=== PATIENT | female | born 1960 | race Caucasian/White ===

== ENCOUNTER → 2016-05-07 | Outpatient (CLI) | payer BC ==
[~2016-05-07] MED LIST: ALBU18002 PO; ASMANEX INH; BUPRTAB51 PO; CALC-279 PO; CEFT1INJ26 IV; CITA10TA4 PO; FENO67CA2 PO; JUICE PLUS GARDEN PO; JUICE PLUS ORCHARD PO; MELO7.5T5 PO; MULT-506 PO; OMEG10007 PO; TRIA37.5 PO; ZNTT/150 PO
[2016-05-07 13:14] LABS: ALT/SGPT 32 U/L (12-78); BLOOD UREA NITROGEN 16 mg/dl (7-18); BUN/CREATININE RATIO 17.8 (10-20); CALCIUM 8.9 mg/dl (8.5-10.1); CARBON DIOXIDE 27 mmol/L (21-32); CHLORIDE 105 mmol/L (98-107); CHOLESTEROL 215 mg/dl (0-200); GLUCOSE 96 mg/dl (70-99); POTASSIUM 4.5 mmol/L (3.5-5.1); SODIUM 139 mmol/L (136-145); TRIGLYCERIDES 163 mg/dl (0-150); VERY LOW DENSITY LIPOPROT CALC 33 mg/dl
[2016-05-07 13:25] LABS: ALB/GLOB RATIO 0.9 (0.9-2); ALKALINE PHOSPHATASE 98 U/L (45-117); AST/SGOT 23 U/L (15-37); HDL CHOLESTEROL 54 mg/dl; LDL CHOLESTEROL CALCULATED 128 mg/dl
== END | disposition home or self-care (01) ==
LOC: C.LABPVFM 08:07
PROVIDERS: ATTEND Family Medicine
DX: E78.00 Pure hypercholesterolemia, unspecified (principal); F32.9 Major depressive disorder, single episode, unspecified; I10 Essential (primary) hypertension; Z13.21 Encounter for screening for nutritional disorder

== ENCOUNTER → 2016-05-14 | Outpatient (CLI) | payer BC ==
[~2016-05-14] VITALS: Ht 162.6 cm; Wt 93.3 kg
[2016-05-14 13:54] VITALS: BP 148/90; PULSE 92; Ht 162.6 cm; Wt 93.3 kg
== END | disposition home or self-care (01) ==
LOC: C.NEUR 13:28
PROVIDERS: ATTEND Internal Medicine Pulmonary Disease
DX: G47.33 Obstructive sleep apnea (adult) (pediatric) (principal); J45.909 Unspecified asthma, uncomplicated

== ENCOUNTER → 2016-05-19 | Outpatient (CLI) | payer BC ==
--- NOTE | 2016-05-20 12:35 | MAMMOGRAPHY REPORT ---
BILATERAL DIGITAL SCREENING MAMMOGRAM TOMOSYNTHESIS WITH CAD: 05/19/2016 CLINICAL HISTORY: Routine screening examination. TECHNIQUE: Breast tomosynthesis in addition to standard 2D mammography was performed. Current study was also evaluated with a Computer Aided Detection (CAD) system. COMPARISON: Comparison is made to exams dated: 05/16/2015 mammogram, 03/31/2012 mammogram, 02/06/2010 mammogram - [facility], and 01/27/2007. BREAST COMPOSITION: There are scattered areas of fibroglandular density in both breasts. FINDINGS: There is stable nodularity in the right breast and stable benign-appearing microcalcifica tions bilaterally. No suspicious mass, architectural distortion or cluster of microcalcifications i s seen. IMPRESSION: ACR BI-RADS CATEGORY 1: NEGATIVE There is no mammographic evidence of malignancy. A 1 year screening mammogram is recommended. The p atient will receive written notification of the results. Approximately 10% of breast cancers are not detected with mammography. A negative mammographic repor t should not delay biopsy if a clinically suggestive mass is present. Susie Ayala M.D. ay/:05/19/2016 16:55:26 [employer]: Marianela SANTOS(Prabhjot)(Ellie), [facility] letter sent: Normal 1/2 BI-RADS Code: ACR BI-RADS Category 1: Negative
== END | disposition home or self-care (01) ==
LOC: C.MAMM 08:38
PROVIDERS: ATTEND Family Medicine
DX: Z12.31 Encounter for screening mammogram for malignant neoplasm of breast (principal)

== ENCOUNTER → 2017-02-16 | Day surgery (SDC) | payer BC ==
[~2017-02-16] VITALS: Ht 162.6 cm; Wt 90.5 kg
[2017-02-16] VITALS (10 sets, daily range): BP systolic 134–156; BP diastolic 69–88; PULSE 75–90; TEMP 36.5–37.1; O2SAT 93–95; Ht 162.6 cm; Wt 90.5 kg
[~2017-02-16] MED LIST changes: +ACETAMINOPHEN 500 MG TAB PO PRN
--- NOTE | 2017-02-16 10:02 | Discharge Instructions ---
Discharge Instructions Procedure Procedure Date: Feb 16, 2017. Reason for visit: Pinched Nerve, Stenosis. Discharge Discharge Date: Feb 16, 2017. Discharge Diagnosis: Right lower extremity radiculopathy Instructions Activity Recommendations: 1 Day-May resume regular activity, 48 Hours of decreased exertion, 1 Day with no exercise/sex/sports, 1 Day with no driving/ machine use Return to School/Work: limitations (light activity x 48 hours) Recommended Home Diet: Resume Previous Diet Provider Instructions: Fluoroscopic guided lumbar puncture is performed in preparation for a CT myelogram. Intrathecal positioning is confirmed by return of CSF into the needle hub. Iodinated contrast was then injected into the thecal sac for CT myelography. The procedure was well tolerated and without immediate complication. ACTIVITY RECOMMENDATIONS: * Rest today. * Resume regular activity in one day. MEDICATIONS: * May take Tylenol or Ibuprofen as needed for pain. DIET: * Resume previous diet. SPECIAL CARE INSTRUCTIONS: Call your doctor if: * Temperature above 101 degrees F. * Pain not relieved by pain medicine ordered. * Increased drainage or redness from incision. * Notify your doctor with any questions or concerns. Call your doctor or go to the nearest Emergency Department if you experience: * Increased chest pain or shortness of breath. FOLLOW UP VISIT: Follow-up with Referring Physician as scheduled. Allergies Coded Allergies: Oxycodone (Verified Allergy, Unknown, SEVERE NAUSEA AND VOMITNG, 02/16/17) Hydrocodone (Verified Adverse Reaction, Unknown, NAUSEA/STOMACH UPSET, ) [place] Recommendations: Call your doctor if: * Temperature above 101 degrees * Pain not relieved by pain medicine ordered * There is increased drainage or redness from any incision * You have any unanswered questions or concerns. Your Doctors Instructions noted above were prepared by provider Bridger Monsalve. Patient Signature Section: Patient Instructions Signature Page Gris Confer Patient (or Guardian) Signature/Date: I have read and understand the instructions given to me by my caregivers. Caregiver/RN/Doctor Signature/Date: The above-named patient and/or guardian has received patient instructions on this date. + Original Patient Signature Page (only) stays with chart. Please make copy for patient.
--- NOTE | 2017-02-16 10:10 | DIAGNOSTIC IMAGING REPORT ---
FLUOROSCOPIC GUIDED LUMBAR PUNCTURE CLINICAL HISTORY: Right lower extremity radiculopathy. Lumbar puncture with contrast injection for CT myelogram. PROCEDURE: The risks, benefits, and alternatives to the procedure is discussed with the patient who voiced understanding. Written informed consent was obtained. The patient was placed prone on the fluoroscopy table. The lower back was prepped and draped in the usual sterile fashion. 1% lidocaine was used for local anesthesia. A 22-gauge spinal needle was inserted into the L3-L4 laminectomy site, and intrathecal positioning was confirmed by return of cerebrospinal fluid into the needle hub. Approximately 10 cc of Isovue-200 was then injected into the thecal sac under fluoroscopic guidance. The patient tolerated the procedure well. There were no immediate complications. The patient was then transported to CT for CT myelogram and was observed in the medical treatment unit prior to discharge. Fluoroscopy time: 0.3 minutes. IMPRESSION: Fluoroscopic guided lumbar puncture with intrathecal injection of iodinated contrast for CT myelogram. There were no immediate complications. Electronically signed by: Bridger Monsalve M.D. 02/16/2017 10:09 AM Dictated Date/Time: 02/16/2017 10:07 AM
--- NOTE | 2017-02-16 11:01 | DIAGNOSTIC IMAGING REPORT ---
CT MYELOGRAM OF THE LUMBAR SPINE CLINICAL HISTORY: Right lower extremity radiculopathy. COMPARISON STUDY: MRI of the lumbar spine dated 10/14/2006. TECHNIQUE: Following the intrathecal administration of iodinated contrast, CT myelogram of the lumbar spine is performed from the lower thoracic spine to the sacrum. Images are reviewed in the axial, sagittal, and coronal planes. A dose lowering technique was utilized adhering to the principles of ALARA. CT DOSE: 998.30 mGy.cm FINDINGS: Lumbar spine: The skeletal structures are osteopenic. There is no evidence of acute fracture. Vertebral body height is maintained throughout the lumbar spine. There is 5 mm of anterolisthesis at L4-L5. Alignment is otherwise preserved. There are postoperative changes from laminectomy and posterior fusion seen from L3 to L5. Intrapedicular screws are present at all levels. The orthopedic hardware appears intact. The transverse processes appear intact. There is no evidence of spondylolysis. No lytic or blastic lesion is seen. Intervertebral discs: There is moderate to severe disc space narrowing seen at L4-L5. The disc spaces are otherwise preserved. Spinal cord and central canal: The visualized spinal cord is normal in morphology. The conus medullaris terminates at the level of L2. The nerve roots of the cauda equina are normal in morphology. There is at least moderate to severe central canal stenosis at the L2-L3 level. The central canal appears widely patent at the remaining lumbar levels. T12-L1: Unremarkable. L1-L2: Unremarkable. L2-L3: There is a broad-based posterior disc bulge. In conjunction with hypertrophy of the ligamentum flavum there is moderate to severe central canal stenosis at this level. The minimum AP diameter measures 6 mm. An inferiorly extruded/sequestered fragment is suggested eccentric to the right at this level, best seen on sagittal image number 31. This measures 1.2 cm, and there is tethering of the nerve roots of the cauda equina at this level with impingement on the transiting nerve roots, right greater than left. The neural foramina are patent. L3-L4: The central canal and neural foramina appear patent. L4-L5: There is a posterior disc-osteophyte complex. The central canal and neural foramina are patent at this level. L5-S1: The central canal and neural foramina are patent. Facet arthropathy is of no consequence. Sacrum: The visualized sacrum and bony pelvis appear intact. Soft tissues: There is fatty atrophy of the paraspinous musculature. Hepatic steatosis is observed. The abdominal aorta is normal in caliber noting mild atherosclerotic calcification. No retroperitoneal lymphadenopathy is seen. IMPRESSION: 1. There is a posterior disc bulge at L2-L3, with a suspected inferiorly extruded/sequestered disc fragment within the central canal eccentric to the right. This causes moderate to severe central canal stenosis at this level and impinges on the transiting bilateral nerve roots, right greater than left. 2. No significant spinal stenosis is seen at the remaining lumbar levels. See above discussion for detailed nxhlz-pf-czlax analysis. 3. There are postoperative changes from laminectomy and posterior fusion from L3 to L5. The orthopedic hardware appears intact. 4. No destructive bony lesion is identified. Dictated: 02/16/2017 10:17 AM Transcribed: 02/16/2017 11:01 AM [facility] Electronically signed by: Bridger Monsalve M.D. 02/16/2017 11:06 AM Dictated Date/Time: 02/16/2017 10:17 AM
== END ==
LOC: C.ACU 07:28
PROVIDERS: ATTEND Orthopaedic Surgery Orthopaedic Surgery of the Spine
DX: M48.061 Spinal stenosis, lumbar region without neurogenic claudication (principal); M51.16 Intervertebral disc disorders with radiculopathy, lumbar region

== ENCOUNTER → 2017-04-13 | Outpatient (CLI) | payer BC ==
[~2017-04-13] MED LIST changes: -ACETAMINOPHEN 500 MG TAB PO PRN; -CEFT1INJ26 IV
[2017-04-13 12:57] LABS: ALBUMIN 3.4 gm/dl (3.4-5.0); ALT/SGPT 49 U/L (12-78); AST/SGOT 26 U/L (15-37); BLOOD UREA NITROGEN 10 mg/dl (7-18); CALCIUM 9.4 mg/dl (8.5-10.1); CARBON DIOXIDE 30 mmol/L (21-32); CHOLESTEROL 186 mg/dl (0-200); CREATININE 0.97 mg/dl (0.60-1.20); GLUCOSE 100 mg/dl (70-99); POTASSIUM 4.4 mmol/L (3.5-5.1); SODIUM 139 mmol/L (136-145)
[2017-04-13 13:00] LABS: ALKALINE PHOSPHATASE 80 U/L (45-117); LDL CHOLESTEROL CALCULATED 107 mg/dl
== END | disposition home or self-care (01) ==
LOC: C.LABPVFM 07:41
PROVIDERS: ATTEND Family Medicine
DX: E78.00 Pure hypercholesterolemia, unspecified (principal); L40.9 Psoriasis, unspecified; I10 Essential (primary) hypertension

== ENCOUNTER → 2017-05-18 | Outpatient (CLI) | payer BC ==
[~2017-05-18] VITALS: Ht 162.6 cm; Wt 93.1 kg
[~2017-05-18] MED LIST changes: +RANI150T85 PO; -ZNTT/150 PO
[2017-05-18 13:52] VITALS: BP 168/88; PULSE 85; Ht 162.6 cm; Wt 93.1 kg
== END | disposition home or self-care (01) ==
LOC: C.NEUR 11:50
PROVIDERS: ATTEND Physician Assistant Medical
DX: G47.33 Obstructive sleep apnea (adult) (pediatric) (principal); I10 Essential (primary) hypertension

== ENCOUNTER → 2017-05-21 | Outpatient (CLI) | payer BC ==
--- NOTE | 2017-05-21 15:44 | MAMMOGRAPHY REPORT ---
BILATERAL DIGITAL SCREENING MAMMOGRAM TOMOSYNTHESIS WITH CAD: 05/21/2017 CLINICAL HISTORY: Routine screening. The patient reported to the technologist that she has itchiness around her left areola. TECHNIQUE: Breast tomosynthesis in addition to standard 2D mammography was performed. Current study was also evaluated with a Computer Aided Detection (CAD) system. COMPARISON: Comparison is made to exams dated: 05/19/2016 mammogram, 05/16/2015 mammogram, 03/31/2012 m ammogram, 02/19/2011 mammogram, 02/06/2010 mammogram, and 02/05/2009 mammogram - [facility]. BREAST COMPOSITION: There are scattered areas of fibroglandular density in both breasts. FINDINGS: No suspicious masses, calcifications, or areas of architectural distortion are noted in ei ther breast. There has been no significant interval change compared to prior exams. Scattered bilater al benign-appearing calcifications are not significantly changed. IMPRESSION: ACR BI-RADS CATEGORY 2: BENIGN There is no mammographic evidence of malignancy. A 1 year screening mammogram is recommended. Also r ecommend clinical follow-up for left areolar itchiness. The patient will receive written notificatio n of the results. Approximately 10% of breast cancers are not detected with mammography. A negative mammographic report should not delay biopsy if a clinically suggestive mass is present. Lara Groves M.D. ah/:05/21/2017 13:32:10 [employer] Repairer: Norberto Chi RT(R)(M), [facility] letter sent: Normal 1/2 BI-RADS Code: ACR BI-RADS Category 2: Benign
== END | disposition home or self-care (01) ==
LOC: C.MAMM 08:20
PROVIDERS: ATTEND Family Medicine
DX: Z12.31 Encounter for screening mammogram for malignant neoplasm of breast (principal)

== ENCOUNTER → 2017-07-09 | Outpatient (CLI) | payer BC ==
--- NOTE | 2017-07-09 09:28 | DIAGNOSTIC IMAGING REPORT ---
CHEST 2 VIEWS ROUTINE CLINICAL HISTORY: 56 years-old Female presenting with ASTHMA WITH ACUTE EXACERBATION, COUGH PERSISTENT. TECHNIQUE: PA and lateral views of the chest were obtained. COMPARISON: 12/04/2015. FINDINGS: Cardiomediastinal silhouette normal. Lungs and pleural spaces clear. Partially visualized lumbar fusion hardware. Upper abdomen normal. IMPRESSION: 1. No acute cardiopulmonary disease. Electronically signed by: Forest Mcmahon M.D. 07/09/2017 9:26 AM Dictated Date/Time: 07/09/2017 9:25 AM
== END | disposition home or self-care (01) ==
LOC: C.RADPV 09:13
PROVIDERS: ATTEND Nurse Practitioner
DX: J45.901 Unspecified asthma with (acute) exacerbation (principal); R05 Cough

== ENCOUNTER 2017-08-04 18:36 | Emergency (ER) | payer BC ==
[~2017-08-04] VITALS: Ht 162.6 cm; Wt 95.9 kg
[2017-08-04 18:48] VITALS: TEMP 37.2; Ht 162.6 cm; Wt 95.9 kg
[2017-08-04] MEDS ORDERED: ASPIRIN 324 MG CHEW PO STA (18:59)
[2017-08-04 19:08] VITALS: O2SAT 95
--- NOTE | 2017-08-04 19:13 | EMERGENCY ROOM VISIT NOTE ---
History First contact with patient: 18:53 Chief Complaint: CHEST PAIN Stated Complaint: PRESSURE IN CHEST WHEN BREATHING History of Present Illness The patient is a 56 year old female who presents to the Emergency Room via private vehicle with complaints of "pressure in chest when breathing". The patient states that 3-4 weeks ago she experienced wheezing and a cough which she thought was bronchitis. She notes she had 3 doctor's appointments in 1 week. She was initially on penicillin for a dental reason but then was switched to prednisone, and doxycycline and then another antibiotic of which she is not sure what it was. She was then on a course of 15 days of prednisone taper. She notes that she felt better for about a week and a half however last night when she returned home from work she developed chest discomfort when she took a breath. She denies any leg swelling, hemoptysis, history of clots, or heart troubles. She notes she does have high cholesterol. There have been no exacerbating factors other than deep breath. No alleviating factors. Review of Systems A complete 10-point Review of Systems was discussed with the patient, with pertinent positives and negatives listed in the History of Present Illness. All remaining Review of Systems questions can be considered negative unless otherwise specified. Past Medical/Surgical History Medical Problems: (1) Asthma (2) Hypertension (3) Incisional infection (4) Spondylolisthesis, lumbar region (5) Wound infection after surgery Surgical Problems: (1) History of back surgery (2) S/P laminectomy Family History Cancer Diabetes mellitus Hypertension Social History Smoking Status: Never Smoker Alcohol Use: none Drug Use: none Marital Status: Housing Status: lives with family Occupation Status: employed Current/Historical Medications Scheduled Bupropion (Wellbutrin-Xl), 300 MG PO QAM Calcium Citrate-Vitamin D (Calcium Citrate + D), 1 TAB PO QAM Citalopram Hydrobromide (Citalopram Hydrobromide), 20 MG PO HS Fenofibrate Micronized (Tricor), 67 MG PO QAM Fish Oil ([place]-3), 1 CAP PO QAM Meloxicam (Mobic), 15 MG PO QAM Multivitamin (Multivitamin), 1 TAB PO QAM Ranitidine (Zantac), 150 MG PO HS Triamterene/Hctz (Dyazide 37.5MG/25MG), 1 TAB PO QAM [Asmanex], 2 PUFFS INH QAM [Juice Plus [place]], 2 TAB PO QAM [Juice Plus [place]], 2 TAB PO QAM Scheduled PRN Albuterol Sulfate (Proair Respiclick), 1 INHA PO QID PRN for SOB/Wheezing Physical Exam Vital Signs Date Time Temp Pulse Resp B/P (MAP) Pulse Ox O2 Delivery O2 Flow Rate FiO2 08/04/17 20:38 94 18 154/81 94 Room Air 08/04/17 19:49 94 18 121/70 93 Room Air 08/04/17 19:15 99 08/04/17 19:08 95 Room Air 08/04/17 19:07 95 Room Air 08/04/17 18:48 37.2 101 20 151/84 99 Room Air Physical Exam VITAL SIGNS - Vital signs and nursing notes were reviewed. Stable. GENERAL -56-year-old female appearing her stated age who is in no acute distress. Communicates well with provider and answers questions appropriately. SKIN - Without rashes. No meningeal or petechial rash HEAD - NC/AT. EYES - PERRL with EOMI bilaterally. Sclera anicteric EARS - No deformities of external structures noted on gross examination bilaterally. NOSE - Midline and without cyanosis. No epistaxis or purulent drainage noted. MOUTH/OROPHARYNX - Without perioral cyanosis. NECK - Neck with FROM. No nuchal rigidity. LUNGS - Chest wall symmetric without accessory muscle use, intercostals retractions, or central cyanosis. Normal vesicular breath sounds CTA B/L. No wheezes, rales, or rhonchi appreciated. CARDIAC - RRR with S1/S2. No murmur, rubs, or gallops appreciated. No reproducible anterior chest pain. ABDOMEN - Abdominal contour normal without pulsations or visible masses. BS normoactive all four quadrants. No tenderness, palpable masses, hepatosplenomegaly, or ascites noted. EXTREMITIES - No clubbing or peripheral cyanosis. No pretibial edema present. + 5/5 strength noted in UE/LE bilaterally. NEUROLOGIC - Cranial nerves II through XII grossly intact. Sensory intact to light touch throughout. PSYCH - A&O, and cooperates fully with examiner. Pt is very pleasant and interacts well with examiner. Medical Decision & Procedures ER Provider Diagnostic Interpretation: CHEST ONE VIEW PORTABLE HISTORY: 56 years-old Female inspiratory chest discomfort acute atypical chest pain COMPARISON: Chest radiograph 07/09/2017 TECHNIQUE: Portable AP view of the chest FINDINGS: Cardiomediastinal and hilar silhouettes are within normal limits. Mild right hemidiaphragm elevation without pneumothorax, pleural effusion, focal airspace consolidation or overt pulmonary edema. The bones of the chest appear grossly intact. Mild degenerative changes about the spine. IMPRESSION: No acute process. The above report was generated using voice recognition software. It may contain grammatical, syntax or spelling errors. Electronically signed by: Fortino Worthy M.D. 08/04/2017 7:31 PM Dictated Date/Time: 08/04/2017 7:30 PM Laboratory Results 08/04/17 19:05 Red Blood Count 4.33, Mean Corpuscular Volume 88.7, Mean Corpuscular Hemoglobin 31.4, Mean Corpuscular Hemoglobin Concent 35.4, Mean Platelet Volume 9.1, Neutrophils (%) (Auto) 46.7, Lymphocytes (%) (Auto) 36.9, Monocytes (%) (Auto) 11.7, Eosinophils (%) (Auto) 4.2, Basophils (%) (Auto) 0.3, Neutrophils # (Auto ) 3.00, Lymphocytes # (Auto) 2.37, Monocytes # (Auto) 0.75, Eosinophils # (Auto ) 0.27, Basophils # (Auto) 0.02 08/04/17 19:05 Test 08/04/17 19:05 White Blood Count 6.42 K/uL (4.8-10.8) Red Blood Count 4.33 M/uL (4.2-5.4) Hemoglobin 13.6 g/dL (12.0-16.0) Hematocrit 38.4 % (37-47) Mean Corpuscular Volume 88.7 fL (80-100) Mean Corpuscular Hemoglobin 31.4 pg (25-34) Mean Corpuscular Hemoglobin Concent 35.4 g/dl (32-36) Platelet Count 287 K/uL (130-400) Mean Platelet Volume 9.1 fL (7.4-10.4) Neutrophils (%) (Auto) 46.7 % Lymphocytes (%) (Auto) 36.9 % Monocytes (%) (Auto) 11.7 % Eosinophils (%) (Auto) 4.2 % Basophils (%) (Auto) 0.3 % Neutrophils # (Auto) 3.00 K/uL (1.4-6.5) Lymphocytes # (Auto) 2.37 K/uL (1.2-3.4) Monocytes # (Auto) 0.75 K/uL (0.11-0.59) Eosinophils # (Auto) 0.27 K/uL (0-0.5) Basophils # (Auto) 0.02 K/uL (0-0.2) RDW Standard Deviation 39.6 fL (36.4-46.3) RDW Coefficient of Variation 12.4 % (11.5-14.5) Immature Granulocyte % (Auto) 0.2 % Immature Granulocyte # (Auto) 0.01 K/uL (0.00-0.02) Prothrombin Time 9.8 SECONDS (9.0-12.0) Prothromb Time International Ratio 0.9 (0.9-1.1) Activated Partial Thromboplast Time 27.3 SECONDS (21.0-31.0) Partial Thromboplastin Ratio 1.1 D-Dimer 270 ug/L FEU (0-500) Anion Gap 8.0 mmol/L (3-11) Est Creatinine Clear Calc Drug Dose 53.1 ml/min Estimated GFR () 51.7 Estimated GFR (Non- 44.6 BUN/Creatinine Ratio 9.9 (10-20) Calcium Level 8.9 mg/dl (8.5-10.1) Magnesium Level 1.9 mg/dl (1.8-2.4) Total Bilirubin 0.5 mg/dl (0.2-1) Aspartate Amino Transf (AST/SGOT) 22 U/L (15-37) Alanine Aminotransferase (ALT/SGPT) 38 U/L (12-78) Alkaline Phosphatase 91 U/L (45-117) Total Creatine Kinase 60 U/L (26-192) Creatine Kinase MB < 0.5 ng/ml (0.5-3.6) Creatine Kinase MB Ratio (0-3.0) Troponin I < 0.015 ng/ml (0-0.045) Total Protein 7.8 gm/dl (6.4-8.2) Albumin 3.6 gm/dl (3.4-5.0) Globulin 4.2 gm/dl (2.5-4.0) Albumin/Globulin Ratio 0.9 (0.9-2) Lipase 198 U/L (73-393) Thyroid Stimulating Hormone (TSH) 1.860 uIu/ml (0.300-4.500) Medications Administered Medications (Trade) Dose Ordered Sig/Florentino Route Start Time Stop Time Status Last Admin Dose Admin Aspirin (Aspirin Chew) 324 mg NOW STAT PO 08/04/17 18:59 08/04/17 19:01 DC 08/04/17 19:04 324 MG Potassium Chloride (Klor-Con M10) 40 meq NOW STAT PO 08/04/17 20:31 08/04/17 20:32 DC 08/04/17 20:43 40 MEQ Medical Decision Patient was seen and evaluated as above in room a 9. Review was performed of nursing notes and vital signs. After obtaining a thorough history and physical examination the above work up was performed. She presents to us today with chest pain. She is nontoxic on exam. Vital signs are stable. I did elect to obtain baseline labs. EKG was obtained. Per my interpretation EKG reveals normal sinus rhythm, rate of 99 bpm. No ectopy or ischemic change. This was compared with EKG of December 04, 2015 and no significant change was found. CBC reveals no leukocytosis or anemia. Coags normal. D-dimer negative. Patient metabolic panel does reveal hypokalemia at 3.0. Creatinine 1.33. Troponin negative. Other cardiac enzymes negative. TSH and lipase are negative for abnormality. I did provide her a full strength aspirin upon arrival because of her symptoms. She was given 40 mEq of potassium chloride p.o. secondary to her hypokalemia. Given her negative chest x-ray, negative d- dimer, negative troponin with symptoms beginning greater than 6 hours ago and normal EKG I do not suspect any emergent process. I do recommend follow-up with cardiology and her family doctor for further evaluation and management are returning with worse. Her heart score is at max a 3 which is minimal risk. Case was discussed with the attending physician. The patient was educated upon management, had questions answered prior to discharge, and was discharged home in good condition. I favor her symptoms to likely be musculoskeletal in nature in the cartilage secondary to the coughing that she was experiencing in the recent past. In the evaluation and treatment of this patient the following differential diagnoses were entertained: UT, PE, peritonitis, costochondritis, pneumonia, pneumothorax, among others. Impression Primary Impression: Chest pain on respiration Additional Impression: Hypokalemia Departure Information Dispostion Home / Self-Care Condition GOOD Referrals Augie Lozano M.D. (PCP) Chan Vieyra MD Patient Instructions Hypokalemia Dc, My [facility] Additional Instructions You have been treated in the Emergency Department your chest pain. Laboratory results and imaging studies have ruled out any emergent causes for your pain which would warrant admission or surgery. For pain control, you can use the following mjis-quk-tczzafl medicines (if >12 yo): - Regular strength (325mg/tab) Tylenol (acetaminophen) 2 tabs every 4-6 hours as needed. Do not exceed 12 tablets in a 24 hour period. Avoid taking more than 3 grams (3000 mg) of Tylenol per day. This includes any other sources of acetaminophen you may take on a regular basis. I do recommend having your family doctor repeat your potassium and creatinine in the near future. Drink plenty of water and stay well hydrated. As with any trip to the Emergency Department, you should follow-up with your Primary Care Provider from today's visit. For the chest pain I also recommend following up with cardiology, please give Dr. Vieyra's office a call as soon as possible to schedule follow-up. Please no strenuous activity until seen by her family doctor or cardiology. Please refer to the attached sheet regarding foods high in potassium. Return to the emergency department if your symptoms persist despite treatment plan outlined above or if the following symptoms occur: Worsening chest pain, chest pain with exertion, coughing up blood, or any new/concerning symptoms. Problem Qualifiers
[2017-08-04 19:22] LABS: BASO % 0.3 %; BASO ABS # 0.02 K/uL (0-0.2); EOS % 4.2 %; EOS ABS # 0.27 K/uL (0-0.5); HEMATOCRIT 38.4 % (37-47); HEMOGLOBIN 13.6 g/dL (12.0-16.0); IG# 0.01 K/uL (0.00-0.02); LYMPH % 36.9 %; LYMPH ABS # 2.37 K/uL (1.2-3.4); MEAN CELL VOLUME 88.7 fL (80-100); MEAN CORPUSCULAR HEMOGLOBIN 31.4 pg (25-34); MEAN CORPUSCULAR HGB CONC 35.4 g/dl (32-36); MEAN PLATELET VOLUME 9.1 fL (7.4-10.4); MONO % 11.7 %; MONO ABS # 0.75 K/uL (0.11-0.59); NEUT % 46.7 %; PLATELET COUNT 287 K/uL (130-400); RED CELL DISTRIBUTION WIDTH CV 12.4 % (11.5-14.5); RED CELL DISTRIBUTION WIDTH SD 39.6 fL (36.4-46.3); WHITE BLOOD COUNT 6.42 K/uL (4.8-10.8)
--- NOTE | 2017-08-04 19:32 | DIAGNOSTIC IMAGING REPORT ---
CHEST ONE VIEW PORTABLE HISTORY: 56 years-old Female inspiratory chest discomfort acute atypical chest pain COMPARISON: Chest radiograph 07/09/2017 TECHNIQUE: Portable AP view of the chest FINDINGS: Cardiomediastinal and hilar silhouettes are within normal limits. Mild right hemidiaphragm elevation without pneumothorax, pleural effusion, focal airspace consolidation or overt pulmonary edema. The bones of the chest appear grossly intact. Mild degenerative changes about the spine. IMPRESSION: No acute process. The above report was generated using voice recognition software. It may contain grammatical, syntax or spelling errors. Electronically signed by: Fortino Worthy M.D. 08/04/2017 7:31 PM Dictated Date/Time: 08/04/2017 7:30 PM
[2017-08-04 19:51] LABS: ALBUMIN 3.6 gm/dl (3.4-5.0); ALKALINE PHOSPHATASE 91 U/L (45-117); ALT/SGPT 38 U/L (12-78); AST/SGOT 22 U/L (15-37); BLOOD UREA NITROGEN 13 mg/dl (7-18); CALCIUM 8.9 mg/dl (8.5-10.1); CARBON DIOXIDE 29 mmol/L (21-32); CKMB < 0.5 ng/ml (0.5-3.6); CREATININE 1.33 mg/dl (0.60-1.20); GLUCOSE 102 mg/dl (70-99); LIPASE 198 U/L (73-393); SODIUM 137 mmol/L (136-145); TOTAL PROTEIN 7.8 gm/dl (6.4-8.2)
[2017-08-04 19:53] LABS: INR 0.9 (0.9-1.1); PTT PATIENT 27.3 SECONDS (21.0-31.0)
[2017-08-04] MEDS ORDERED: POTASSIUM CHLORIDE 10 MEQ TABCR PO STA (20:31)
[2017-08-04 20:38] VITALS: BP 154/81; PULSE 94; O2SAT 94
[2017-08-04] MEDS ORDERED: CITA40TA4 PO (20:50)
[2017-08-04] MEDS ORDERED: FENO67CA PO (20:50)
== END 2017-08-04 20:52 | disposition home or self-care (01) ==
LOC: C.EDB 18:38 → C.EDA 20:52
DX: R07.9 Chest pain, unspecified (principal); E87.6 Hypokalemia; J45.909 Unspecified asthma, uncomplicated; I10 Essential (primary) hypertension; Z80.9 Family history of malignant neoplasm, unspecified; Z83.3 Family history of diabetes mellitus; Z82.49 Family history of ischemic heart disease and other diseases of the circulatory system; Z79.899 Other long term (current) drug therapy

== ENCOUNTER → 2017-08-09 | Outpatient (CLI) | payer BC ==
[~2017-08-09] MED LIST changes: -CITA10TA4 PO; +CITA40TA4 PO; +FENO67CA PO; -FENO67CA2 PO
[2017-08-09 17:46] LABS: BLOOD UREA NITROGEN 13 mg/dl (7-18); CALCIUM 9.2 mg/dl (8.5-10.1); CARBON DIOXIDE 27 mmol/L (21-32); CREATININE 1.21 mg/dl (0.60-1.20); GLUCOSE 101 mg/dl (70-99); POTASSIUM 3.5 mmol/L (3.5-5.1); SODIUM 138 mmol/L (136-145)
== END | disposition home or self-care (01) ==
LOC: C.LABPVFM 15:45
PROVIDERS: ATTEND Family Medicine
DX: G47.33 Obstructive sleep apnea (adult) (pediatric) (principal); F32.9 Major depressive disorder, single episode, unspecified; J45.909 Unspecified asthma, uncomplicated; K21.9 Gastro-esophageal reflux disease without esophagitis; M54.30 Sciatica, unspecified side

== ENCOUNTER → 2017-10-22 | Outpatient (CLI) | payer BC ==
[~2017-10-22] MED LIST changes: +REGADENOSON 0.4 MG/5 ML SYR ONE
--- NOTE | 2017-10-27 23:51 | Myocardial Perfusion Study ---
Myocardial Perfusion Study Rpt Myocardial Perfusion Study Rpt Date of Service 10/22/2017 Myocardial Perfusion Study Rpt Procedure: 1. Myocardial perfusion study performed in multiple views/images 2. Lexiscan pharmacologic stress ECG Indications: 1. Chest pain 2. Shortness of breath Consent: Informed written consent was obtained prior to the procedure. Ordering physician: Dr. Vieyra Procedural details: For the stress portion of the study, Lexiscan 0.4 mg was intravenously administered followed by a saline flush. This was followed by 32.073 mCi of technetium 99m Cardiolite, injected at 11:25 a.m. on 10/22/2017. 30 minutes following the injection, imaging of the heart was performed in multiple projections. For the rest portion of the study, 11.2 mCi technetium 99m Cardiolite was injected intravenously at 1:18 p.m. on 10/22/2017. 1 hour following the injection, imaging of the heart was performed in the same projections. I was made aware of this study on 10/26/2017 and the study was interpreted within approximately 24 hours. Lexiscan stress ECG: Resting ECG demonstrated: NSR at 74 bpm. Maximum heart rate: 108 bpm Resting blood pressure: 141/86 mmHg Maximum blood pressure: 158/82 mmHg Maximal, age-predicted heart rate: 65 % Significant ST changes: None Arrhythmia: None Symptoms: Chest tightness Findings: Rotating raw imaging demonstrated no significant lung uptake. There is no significant motion artifact. Heart size appeared normal. Myocardial perfusion demonstrated no significant fixed or reversible defect to suggest infarct or ischemia. Ejection fraction: 82 % Wall motion: Normal No significant transient ischemic dilation. Impression: 1. Normal myocardial perfusion study without significant infarct/ischemic changes. 2. Hyperdynamic LV systolic function with EF 82% and normal wall motion. 3. Lexiscan induced chest tightness. 4. Nondiagnostic Lexiscan ECG.
== END | disposition home or self-care (01) ==
LOC: C.NUCL 11:05
PROVIDERS: ATTEND Internal Medicine Cardiovascular Disease
DX: R07.9 Chest pain, unspecified (principal); R06.02 Shortness of breath